=== PATIENT | female | born 1945 | race Caucasian/White ===

== ENCOUNTER 2016-10-10 11:34 | Outpatient (CLI) | payer MEDICARE, OTHER ==
[~2016-10-10] VITALS: Ht 167.6 cm; Wt 65.4 kg
[~2016-10-10 11:34] MED LIST: ACET-62 PO; ALFA600T PO; ASPI-725 PO; CALC-278 PO; CELE-34 PO; CHOL100092 PO; CRAN500C3 PO; ESTR42.53 VAGINALLY; FISH1CAP29 PO; GLUC1CAP25 PO; LOSA100T44 PO; METO25TA41 PO; METO50TA5 PO; MULT-1195 PO; ZOLE5INF IV
[2016-10-10 11:44] VITALS: Ht 167.6 cm; Wt 65.4 kg
[2016-10-10] MEDS ORDERED: ZOLEDRONIC ACID 5MG 100 ML IV ONE (12:15)
[2016-10-10 12:24] VITALS: BP 149/92; PULSE 62; RESP 16; TEMP 97.6; O2SAT 98
== END 2016-10-10 12:45 | disposition home or self-care (01) ==
LOC: INF.THER 11:34
PROVIDERS: ATTEND Internal Medicine
DX: M81.0 Age-related osteoporosis without current pathological fracture (principal)
CPT/HCPCS: J3489

== ENCOUNTER 2016-11-07 08:00 | Observation (INO) | payer MEDICARE, OTHER ==
[~2016-11-07] VITALS: Ht 167.6 cm; Wt 63.0 kg
[~2016-11-07 08:00] MED LIST changes: -ALFA600T PO; -METO25TA41 PO
--- OUTSIDE RECORDS SUMMARY | 2016-11-07 08:09 | XMS REPORT | Continuity of Care Document ---
Author Author [facility] Organization [facility] Address Unknown Phone Unavailable Support Name Relationship Address Phone GRADY CARRILLO MD Caregiver [address] [place] [address] Unavailable JUSTIN HART DO Caregiver [address] [place] [address] Unavailable YO HEADLEY Next Of Kin [address] [place], [place] [phone] Insurance Providers Guarantor FredAndria J Address [address] [place] [address] C Email [email or web address] Payer Medicare Policy Number [id number] Subscriber's Name FredAndria Relationship 18 Self Effective Date 11 Payer [employer] Medicare Supplement Policy Number [id number] Subscriber's Name Alla Reillymark Flores Relationship 18 Self Group Number [id number] Advance Directives Directive Response Recorded Date/Time Advanced Directives Type Living Will DPOA for Healthcare 09/21/16 5:55pm Chief Complaint and Reason for Visit Chief Complaint Palpitations Reason for Visit [id number] Problems Active Problems Medical Problem Onset Date Status Coronary artery sclerosis 03/04/2014 Acute Past Problems Medical Problem Onset Date PVC (premature ventricular contraction) Unknown Medications Current Home Medications Medication Dose Units Route Directions Days Qty Instructions Start Date Acetaminophen 500 Mg Tablet 1,000 Mg Oral Every 4-6 Hours 60 Tablet 09/21/16 Cache 600 Mg Tablet 600 Mg Oral Daily 09/21/16 Aspirin 81 Mg Tab.chew 81 Mg Oral Daily 09/16/13 Calcium Citrate/Vitamin D3 (Calcium Citrate + D Caplet) 1 Tab Tablet 1 Tab Oral Three Times A Day 09/02/08 Celecoxib (Celebrex) 200 Mg Capsule 200 Mg Oral Daily 09/02/08 Cholecalciferol (Vitamin D3) (Vitamin D3) 1,000 Unit Capsule 1 Cap Oral Daily 07/04/16 Cranberry Extract (Cranberry) 500 Mg Capsule 1 Tab Oral Daily 01/12 Estradiol (Estrace Vaginal Cream 0.01%) 21 Applic/42 G Cr 1 Applic Vaginally Twice A Day USUAL APPLICATION: 2-4 GRAMS VAGINALLY 09/21/16 Fish Oil/[place]-3 Fatty Acids (Fish Oil 1,000 Mg Capsule) 1 Cap Capsule 2 Cap Oral Daily 09/02/08 Glucosa Simon 2KCL/Chondroitin Simon (Glucosamine & Chondroitin Cap) 1 Cap Capsule 1 Cap Oral Daily 09/02/08 Losartan Potassium 100 Mg Tablet 100 Mg Oral Daily 09/21/16 Metoprolol Tartrate 25 Mg Tablet 25 Mg Oral Twice A Day 90 Days Metoprolol Tartrate 50 Mg Tablet 50 Mg Oral Twice Daily With Meals 30 Days 60 Tablet Take 1 tablet, by mouth, 2 times a day with meals. 09/21/16 Multivitamin/Iron/Folic Acid (A Thru Z Advanced Formula Tab) 1 Each Tablet 1 Tab Oral Daily 09/21/16 Zoledronic Acid/Mannitol/Water (Reclast 5 Mg/100 Ml Solution) 5 Mg/100 Ml Infus..btl 5 Mg Intraven Yearly 09/17/13 Social History Social History Problem Response Recorded Date/Time Onset Date Status Chewing Tobacco Status No 2013 2:07pm Not Applicable Not Applicable Hx Substance Use No 09/21/2016 6:10pm Not Applicable Not Applicable Hx Alcohol Use Y OCCASIONAL 09/21/2016 6:10pm Not Applicable Not Applicable Has the pt used tobacco in the last 12 months No 07/05/2016 7:34am Not Applicable Not Applicable Query Response Start Date Stop Date Smoking Status Never smoker Hospital Discharge Instructions No hospital discharge instructions. Plan of Care Discharge Date 09/21/16 8:15pm Disposition 01 DISCHARGED HOME, SELF-CARE Condition at Discharge Improved Instructions/Education Provided Palpitations (ED) Prescriptions See Medication Section Referrals JUSTIN HART DO Address: [address] [facility] [address] [place] [address] [phone] Additional Instructions/Education Increase you are metoprolol to 50 mg twice daily and follow up with cardiology. return to the emergency department if you develop any chest pain or shortness of breath. Functional Status No functional status results. Allergies, Adverse Reactions, Alerts Allergen Type Severity Reaction Status Last Updated No Known Drug Allergies Allergy Unknown Active 09/21/16 Immunizations Query Response on File Recorded Date/Time Hx Influenza Vaccination Y 201507/05/16 7:34am Hx Pneumococcal Vaccination Yes 07/05/16 7:34am Hx Influenza Vaccination Y 2016 07/05/16 7:34am Hx Tetanus Diptheria NA 10/23/09 9:45am Influenza Vaccine Hx 04/201609/21/16 6:10pm Vital Signs Acute Vital Signs Vital Response Date/Time Temperature (Fahrenheit) 97.9 deg F (96.8 - 99.1) 09/21/2016 8:15pm Temperature (Calculated Celsius) 36.52059 degrees C (36.0 - 37.3) 09/21/2016 8:15pm Temperature Source Oral 07/05/2016 9:30am Pulse Rate (adult) 68 bpm (60 - 100) 09/21/2016 8:15pm Respiratory Rate 16 breaths/min (10 - 20) 09/21/2016 8:15pm O2 Sat by Pulse Oximetry 100 % (90 - 100) 09/21/2016 8:15pm Oxygen Delivery Method Mask 07/05/2016 8:16am Oxygen Delivery Method Room Air 07/05/2016 9:45am Oxygen Flow Rate 6.00 L/min 07/05/2016 8:16am Blood Pressure 150/67 mm Hg 09/21/2016 8:15pm Blood Pressure Source Automatic Cuff 07/05/2016 9:45am Height (Feet) 5 feet 09/21/2016 5:55pm Height (Inches) 6.00 inches 09/21/2016 5:55pm Weight (Kilograms) 64.600 kg 09/21/2016 5:55pm Body Mass Index (BMI) 22.0 09/21/2016 5:55pm Results Laboratory Results Test Name Result Units Flags Reference Collection Date/Time Result Date/ Time Comments White Blood Count 5.3 T/MM3 4.5-11.0 09/21/2016 6:30pm 09/21/2016 6: 38pm Red Blood Count 4.49 M/MM3 4.00-5.20 09/21/2016 6:30pm 09/21/2016 6: 38pm Hemoglobin 13.3 GM/DL -09/21/2016 6:30pm 09/21/2016 6:38pm Hematocrit 38.4 % 36-46 09/21/2016 6:30pm 09/21/2016 6:38pm Mean Corpuscular Volume 85.5 UM3 80-100 09/21/2016 6:30pm 09/21/2016 6: 38pm Mean Corpuscular Hemoglobin 29.6 UUG 26-34 09/21/2016 6:30pm 2016 6:38pm Mean Corpuscular Hemoglobin Concent 34.6 GM/DL 31-37 09/21/2016 6:30pm 09/21/2016 6:38pm RDW Standard Deviation 40.4 FL 36.9-50.2 09/21/2016 6:30pm 09/21/2016 6 :38pm Platelet Count 190 T/MM3 130-400 09/21/2016 6:30pm 09/21/2016 6:38pm Mean Platelet Volume 9.4 UM3 9.4-12.4 09/21/2016 6:30pm 09/21/2016 6: 38pm Neutrophils (%) (Auto) 51.1 % 33-66 09/21/2016 6:30pm 09/21/2016 6: 38pm Lymphocytes (%) (Auto) 36.4 % 23-45 09/21/2016 6:30pm 09/21/2016 6: 38pm Monocytes (%) (Auto) 8.5 % 0-9.0 09/21/2016 6:30pm 09/21/2016 6:38pm Eosinophils (%) (Auto) 2.3 % 0-4 09/21/2016 6:30pm 09/21/2016 6:38pm Basophils (%) (Auto) 0.9 % 0-2 09/21/2016 6:30pm 09/21/2016 6:38pm Immature Granulocyte % (Auto) 0.8 % H 0.0-0.5 09/21/2016 6:30pm 2016 6:38pm Absolute Neutrophils (auto) 2.7 T/MM3 1.8-7.7 09/21/2016 6:30pm 2016 6:38pm Absolute Lymphocytes (auto) 1.9 T/MM3 1-4.8 09/21/2016 6:30pm 2016 6:38pm Absolute Monocytes (auto) 0.5 T/MM3 0-0.8 09/21/2016 6:30pm 09/21/2016 6:38pm Absolute Eosinophils (auto) 0.1 T/MM3 0-0.5 09/21/2016 6:30pm 2016 6:38pm Absolute Basophils (auto) 0.1 T/MM3 0-0.2 09/21/2016 6:30pm 09/21/2016 6:38pm Absolute Immature Granulocyte (auto 0.04 T/MM3 H 0.00-0.03 09/21/2016 6: 30pm 09/21/2016 6:38pm D-Dimer < 150 NG/ML 0-230 09/21/2016 6:30pm 09/21/2016 6:48pm <230 NG/ ML D-DU=PRESUMPTIVE NEGATIVE FOR PE OR DVT >230 NG/ML D-DU=ADDITIONAL EVAL FOR PE OR DVT RECOMMENDED Icterus Index < 2 0-7 09/21/2016 6:30pm 09/21/2016 6:54pm Chemistry Specimen Hemolysis < 15 0-25 09/21/2016 6:30pm 09/21/2016 6 :54pm 0-25: Specimen Exhibited No Hemolysis. Turbidity < 20 0-20 09/21/2016 6:30pm 09/21/2016 6:54pm Sodium Level 135 MEQ/L 134-144 09/21/2016 6:30pm 09/21/2016 6:54pm Potassium Level 4.2 MEQ/L 3.6-5 09/21/2016 6:30pm 09/21/2016 6:54pm Chloride Level 100 MEQ/L 98-107 09/21/2016 6:30pm 09/21/2016 6:54pm Carbon Dioxide Level 27 MEQ/L 09/21/2016 6:30pm 09/21/2016 6: 54pm Anion Gap 8 MEQ/L 509/21/2016 6:30pm 09/21/2016 6:54pm Blood Urea Nitrogen 15.0 MG/DL 02-1209/21/2016 6:30pm 09/21/2016 6: 54pm Creatinine 0.8 MG/DL 0.7-1.2 09/21/2016 6:30pm 09/21/2016 6:54pm BUN/Creatinine Ratio 19 RATIO 01-2209/21/2016 6:30pm 09/21/2016 6:54pm Glomerular Filtration Rate Calc 71 09/21/2016 6:30pm 09/21/2016 6: 54pm Glucose Level 91 MG/DL 65-110 09/21/2016 6:30pm 09/21/2016 6:54pm Calculated Osmolality 261 MOSM/KG 261-280 09/21/2016 6:30pm 09/21/2016 6:54pm Calcium Level 9.2 MG/DL 8.4-10.2 09/21/2016 6:30pm 09/21/2016 6:54pm Total Bilirubin 0.60 MG/DL 0.20-1.30 09/21/2016 6:30pm 09/21/2016 6: 54pm Alkaline Phosphatase 145 U/L H 38-126 09/21/2016 6:30pm 09/21/2016 6: 54pm Total Protein 6.9 G/DL 6.3-8.2 09/21/2016 6:30pm 09/21/2016 6:54pm Albumin 4.3 G/DL 3.5-5.0 09/21/2016 6:30pm 09/21/2016 6:54pm Globulin 2.6 G/DL 2.4-3.6 09/21/2016 6:30pm 09/21/2016 6:54pm Albumin/Globulin Ratio 1.7 RATIO 1.1-2.2 09/21/2016 6:30pm 09/21/2016 6 :54pm Aspartate Amino Transf (AST/SGOT) 20 U/L 14-36 09/21/2016 6:30pm 2016 6:54pm Alanine Aminotransferase (ALT/SGPT) 38 U/L 9-52 09/21/2016 6:30pm 09/21 6:54pm Troponin I < 0.012 ng/ml 0-0.12 09/21/2016 6:30pm 09/21/2016 7:05pm Troponin values with a difference of 55% increase from orginal troponin value represent a true biological DELTA value. (%increase Calc=Orginal Troponin value, divided by subsequent Troponin value, multiplied by 100) Procedures Procedure Status Date Provider(s) Colonoscopy and biopsy Completed 07/05/16 JUSTIN HART DO Tissue exam by pathologist Completed 07/05/16"INJECTION, MIDAZOLAM HYDROCHLORIDE, PER 1 MG" Completed 07/05/16"INJECTION, MIDAZOLAM HYDROCHLORIDE, PER 1 MG" Completed 07/05/16"INJECTION, FENTANYL CITRATE, 0.1 MG" Completed 07/05/16"RINGERS LACTATE INFUSION, UP TO 1000 CC" Completed 07/05/16 Encounters Encounter Location Arrival/Admit Date Discharge/Depart Date Attending Provider Departed Emergency Room [facility] 09/21/16 5:53pm 09/21/16 8: 15pm GRADY CARRILLO MD Departed Surgical Day Care [facility] 07/05/16 6:40am 07/05/16 9: 45am JUSTIN HART DO Recent Diagnosis
--- OUTSIDE RECORDS SUMMARY | 2016-11-07 08:09 | XMS REPORT | Continuity of Care Document ---
Author Author [facility] Organization [facility] Address Unknown Phone Unavailable Support Name Relationship Address Phone JUSTIN HART DO Caregiver [address] [place] [address] Unavailable JUSTIN HART DO Caregiver [address] [place] [address] Unavailable BAIRON MCCOY MD Caregiver [address] [place] [address] Unavailable YO HEADLEY Next Of Kin [address] [place] [id number] Insurance Providers Guarantor DarlinemeyAndria J Address [address] [place] [id number] Email [email or web address] Payer Cigna Medicare Supplement Policy Number [id number] Subscriber's Name FredAndria J Relationship 18 Self Group Number [id number] Payer Medicare Policy Number [id number] Subscriber's Name Andria Reilly Relationship 18 Self Problems Active Problems Medical Problem Onset Date Status Coronary artery sclerosis 03/04/2014 Acute HTN (hypertension) Unknown Chronic Premature atrial contractions Unknown Chronic Past Problems Medical Problem Onset Date PVC (premature ventricular contraction) Unknown Medications Current Home Medications Medication Dose Units Route Directions Days Qty Instructions Start Date Acetaminophen 500 Mg Tablet 1,000 Mg Oral Every 4-6 Hours 60 Tablet 09/21/16 Aspirin 81 Mg Tab.chew 81 Mg [...] USUAL APPLICATION: 2-4 GRAMS VAGINALLY 09/21/16 Fish Oil/[place]-3 Fatty Acids (Fish Oil 1,000 Mg Capsule) 1 Cap Capsule 2 Cap Oral Daily 09/02/08 Glucosa Simon 2KCL/Chondroitin Simon (Glucosamine & Chondroitin Cap) 1 Cap Capsule 1 Cap Oral Daily 09/02/08 Losartan Potassium 100 Mg Tablet 100 Mg Oral Daily 09/21/16 Metoprolol Tartrate 50 Mg Tablet 50 Mg [...] tobacco in the last 12 months No 10/10/2016 12:20pm Not Applicable Not Applicable Query Response Start Date Stop Date Smoking Status Never smoker Hospital Discharge Instructions No hospital discharge instructions. Plan of Care Discharge Date 10/10/16 12:45pm Prescriptions See Medication Section Functional Status No functional status results. Allergies, Adverse Reactions, Alerts Allergen Type Severity Reaction Status Last Updated No Known Drug Allergies Allergy Unknown Active 09/21/16 Immunizations Query Response on File Recorded Date/Time Hx Influenza Vaccination Y 201510/10/16 12:20pm Hx Pneumococcal Vaccination Yes 10/10/16 12:20pm Hx Influenza Vaccination Y 201510/10/16 12:20pm Hx Tetanus Diptheria NA 10/23/09 9:45am Influenza Vaccine Hx 04/201609/21/16 6:10pm Vital Signs Acute Vital Signs Vital Response Date/Time Temperature (Fahrenheit) 97.6 deg F (96.8 - 99.1) 10/10/2016 12:24pm Temperature (Calculated Celsius) 36.83097 degrees C (36.0 - 37.3) 10/10/2016 12:24pm Pulse Rate (adult) 62 bpm (60 - 100) 10/10/2016 12:24pm Respiratory Rate 16 breaths/min (10 - 20) 10/10/2016 12:24pm O2 Sat by Pulse Oximetry 98 % (90 - 100) 10/10/2016 12:24pm Oxygen Delivery Method Room Air 10/10/2016 12:24pm Blood Pressure 149/92 mm Hg 10/10/2016 12:24pm Blood Pressure Source Automatic Cuff 10/10/2016 12:24pm Height (Feet) 5 feet 10/10/2016 11:44am Height (Inches) 6.00 inches 10/10/2016 11:44am Weight (Kilograms) 65.400 kg 10/10/2016 11:44am Body Mass Index (BMI) 23.3 10/10/2016 11:44am Results Laboratory Results Test Name Result Units Flags Reference Collection Date/Time Result Date/ Time Comments White Blood Count 5.3 T/MM3 4.5-11.0 09/21/2016 6:30pm 09/21/2016 6: 38pm Red Blood Count 4.49 M/MM3 4.00-5.20 09/21/2016 6:30pm 09/21/2016 6: 38pm Hemoglobin 13.3 GM/DL 12-16 09/21/2016 6:30pm 09/21/2016 6:38pm Hematocrit 38.4 % 36-46 [...] 09/21/2016 6:54pm Carbon Dioxide Level 27 MEQ/L -09/21/2016 6:30pm 09/21/2016 6: 54pm Anion Gap 8 MEQ/L 5-09/21/2016 6:30pm 09/21/2016 6:54pm Blood Urea Nitrogen 15.0 MG/DL 7-09/21/2016 6:30pm 09/21/2016 6: 54pm Creatinine 0.8 MG/DL 0.7-1.2 09/21/2016 6:30pm 09/21/2016 6:54pm BUN/Creatinine Ratio 19 RATIO 6-09/21/2016 6:30pm 09/21/2016 6:54pm Glomerular Filtration Rate Calc [...] by subsequent Troponin value, multiplied by 100) Thyroid Stimulating Hormone (TSH) 2.62 uIU/mL 0.35-4.94 09/21/2016 6: 30pm 09/22/2016 2:39pm TSH performed at [facility] Reference [facility], [address] [place] [address] Factory Assembler Bel Healy DO Procedures Procedure Status Date Provider(s) Chest x-ray 2vw frontal&latl Completed 09/21/16 Comprehen metabolic panel Completed 09/21/16 Assay of troponin quant Completed 09/21/16 Complete cbc w/auto diff wbc Completed 09/21/16 Fibrin degradation quant Completed 09/21/16 Electrocardiogram tracing Completed 09/21/16 Hydrate iv infusion add-on Completed 09/21/16 Ther/proph/diag inj iv push Completed 09/21/16 Emergency dept visit Completed 09/21/16 [id number]"INFUSION, NORMAL SALINE SOLUTION , 1000 CC" Completed 09/21/16 Encounters Encounter Location Arrival/Admit Date Discharge/Depart Date Attending Provider Departed Clinic [facility] 10/10/16 11:34am 10/10/16 12:45pm JUSTIN HART DO Departed Emergency Room [facility] 09/21/16 5:53pm 09/21/16 8: 15pm GRADY CARRILLO MD
--- NOTE | 2016-11-07 08:15 | NUR ---
ARRIVAL PATIENT ARRIVED ON UNIT AT THIS TIME FROM HOME. ORIENTED TO UNIT. VITAL SIGNS STABLE. PLACED ON TELEMETRY. WILL CONTINUE TO MONITOR.
[2016-11-07 08:17] VITALS: BP 134/76; PULSE 60; RESP 16; TEMP 96.4; O2SAT 99
[2016-11-07 08:25] VITALS: Ht 167.6 cm; Wt 63.0 kg
[2016-11-07] MEDS ORDERED: magnes PO (08:47)
[2016-11-07 08:57] LABS: HCT - HEMATOCRIT 38.6 % (36-46); HGB - HEMOGLOBIN 13.1 GM/DL (12-16); MEAN CORPUSCULAR HGB 29.8 UUG (26-34); MEAN CORPUSCULAR HGB CONC(MCHC 33.9 GM/DL (31-37); MEAN CORPUSCULAR VOLUME 87.9 UM3 (80-100); MEAN PLATELET VOLUME 9.8 UM3 (9.4-12.4); RED BLOOD COUNT 4.39 M/MM3 (4.00-5.20); WBC - WHITE BLOOD COUNT 3.2 T/MM3 (4.5-11.0)
[2016-11-07 09:06] LABS: ALBUMIN/GLOBULIN RATIO 1.4 RATIO (1.1-2.2); ALKALINE PHOSPHATASE 123 U/L (38-126); ALT (SGPT) 49 U/L (9-52); ANION GAP 10 MEQ/L (5-15); AST (SGOT) 22 U/L (14-36); BUN/CREATININE RATIO 18 RATIO (6-26); CALCIUM 8.8 MG/DL (8.4-10.2); CHLORIDE 101 MEQ/L (98-107); CO2 - CARBON DIOXIDE 27 MEQ/L (22-30); CREATININE 0.8 MG/DL (0.7-1.2); GLOMERULAR FILTRATION RATE 71; GLUCOSE 98 MG/DL (65-110); MAGNESIUM 2.1 MG/DL (1.6-2.3); POTASSIUM 4.1 MEQ/L (3.6-5); SODIUM 138 MEQ/L (134-144); TOTAL PROTEIN 6.8 G/DL (6.3-8.2)
[2016-11-07 09:12] LABS: EOSINOPHILS # (MANUAL) 0.2 T/MM3 (0-0.5); LYMPHOCYTES # (MANUAL) 1.3 T/MM3 (1-4.8); MONOCYTES # (MANUAL) 0.4 T/MM3 (0-0.8); NEUTROPHILS #(MANUAL)-ABSOLUTE 1.2 T/MM3 (1.8-7.7); TOTAL CELLS COUNTED 100 %
[2016-11-07] MEDS ORDERED: ACETAMINOPHEN 500 MG TABLET PO PRN (09:30)
[2016-11-07] MEDS: FLECAINIDE 50 MG TABLET PO SCH ×2 (09:33→21:05)
[2016-11-07 09:35] LABS: THYROID STIM HORMONE-TSH 1.82 MIU/L (0.47-4.68)
[2016-11-07] MEDS ORDERED: ESTRADIOL 0.01% VAGINALLY SCH (10:02)
[2016-11-07] MEDS ORDERED: ESTRADIOL 0.01% VAGINALLY PRN (10:15)
[2016-11-07] MEDS ORDERED: CELECOXIB 200 MG CAPSULE PO ONE (10:15)
--- NOTE | 2016-11-07 13:43 | HPPDOC ---
ELROY APPIAH CIGAR TOBACCO REHANDLER 11/07/16 1329: HPI - Adult Date DATE: 11/07/16 TIME: 13:26 General Date of Admission Date of Admission: Nov 07, 2016 at 08:05 History of Present Illness Andria is a 71 y/o female who is admitted for initiation of Flecainide. Patient has had palpitations and chest pain that is associated with her SVT. Past Medical History Past Medical History PMH Comments Breast lump -- benign HTN PSVT Surgical History Surgical History Comments foramonotomy tonsillectomy carpal tunnel richie cervical diskectomy C5-7 cervical fusion C4-7 Current Medications Home Meds Active Scripts Flecainide Acetate (Flecainide Acetate) 50 Mg Tablet, 50 MG PO Q12HR for 30 Days , #60 TAB 11 Refills Prov:BIJALELROY S CIGAR TOBACCO REHANDLER 11/08/16 Metoprolol Tartrate (Metoprolol Tartrate) 50 Mg Tablet, 50 MG PO BIDWM for 30 Days, #60 TAB Take 1 tablet, by mouth, 2 times a day with meals. Prov:GRADY CARRILLO MD 09/21/16 Reported Medications [magnes] No Conflict Check, 250 MG PO DAILY 11/07/16 Acetaminophen (Acetaminophen) 500 Mg Tablet, 1000 MG PO Q4-6H, #60 TAB 1 Refill 09/21/16 Estradiol (Estrace Vaginal Cream 0.01%) 21 Applic/42 G Cr, 1 APPLIC VAGINALLY BID, G USUAL APPLICATION: 2-4 GRAMS VAGINALLY 09/21/16 Multivitamin/Iron/Folic Acid (A Thru Z Advanced Formula Tab) 1 Each Tablet, 1 TAB PO DAILY 09/21/16 Losartan Potassium (Losartan Potassium) 100 Mg Tablet, 100 MG PO DAILY 09/21/16 Cranberry Extract (Cranberry) 500 Mg Capsule, 1 TAB PO DAILY 07/04/16 Cholecalciferol (Vitamin D3) (Vitamin D3) 1,000 Unit Capsule, 1 CAP PO DAILY 07/04/16 Zoledronic Acid/Mannitol/Water (Reclast 5 Mg/100 Ml Solution) 5 Mg/100 Ml Infus..btl, 5 MG IV YEARLY 09/17/13 Aspirin (Aspirin) 81 Mg Tab.chew, 81 MG PO DAILY, TAB 09/16/13 Celecoxib (Celebrex) 200 Mg Capsule, 200 MG PO DAILY 09/02/08 Calcium Citrate/Vitamin D3 (Calcium Citrate + D Caplet) 1 Tab Tablet, 1 TAB PO TID 09/02/08 Glucosa Simon 2KCL/Chondroitin Simon (Glucosamine & Chondroitin Cap) 1 Cap Capsule, 1 CAP PO DAILY 09/02/08 Allergies: Coded Allergies: No Known Drug Allergies (Verified Allergy, Unknown, 11/07/16) Family History FOUND: cancer (father had liver & lung cancer), diabetes (father), hypertension , other (mom had alzheimers) Vaccines 04/2016 unknown date unknown Social History Smoking Status: Current every day smoker (0.5 ppd) Substance Use Type: does not use Alcohol Intake: occasionally Advance Directives: Yes DPOA for Healthcare Only Review of Systems Constitutional: REPORTS: fatigue, DENIES: chills, fever, weight gain, weight loss Eyes General: DENIES: photophobia ENMT Hearing: DENIES: hearing loss Sinuses: NOT FOUND: rhinorrhea Mouth/Throat: DENIES: sore throat Cardiovascular chest pain, DENIES: dyspnea on exertion Rhythm/Rate: palpitations Pulmonary Respiratory: DENIES: dyspnea, pleuritic chest pain GI Upper Abdomen: DENIES: heartburn/indigestion, nausea, vomiting Lower Abdomen: DENIES: constipation, diarrhea Musculoskeletal General: DENIES: weakness Integumentary Skin: DENIES: rash Neurological General: DENIES: syncope Endocrine DENIES: heat/cold intolerance Physical Exam General General Nourishment: well nourished, well developed Vital Signs Vital Signs Date Time Temp Pulse Resp B/P Pulse Ox O2 Delivery O2 Flow Rate FiO2 11/07/16 08:17 96.4 60 16 134/76 99 Room Air Height (Feet): 5 Height (Inches): 6.00 Telemetry Rhythm: Sinus Rhythm Eyes Brief: FOUND: EOMI ENMT Brief: FOUND: mucosa moist Neck Brief: NOT FOUND: JVD, carotid bruits Respiratory Brief: FOUND: clear all reyna, equal bilaterally, NOT FOUND: rales , wheezes Cardiovascular (brief) Cardiac Brief: FOUND: regular rate, regular rhythm, NOT FOUND: murmur Capillary Refill: <2 sec Abdomen (brief) Abdominal Brief: FOUND: BS normo active x4, soft, NOT FOUND: tender Integumentary (brief) Integumentary Brief: FOUND: dry, pink, warm, NOT FOUND: rash Neurologic RN Documented GCS Eye Opening: Verbal: Motor: Total: Psychiatric (brief) FOUND: alert, normal affect, oriented Laboratory Laboratory Tests Test 11/07/16 08:30 White Blood Count 3.2T/MM3 Red Blood Count 4.39M/MM3 Hemoglobin 13.1GM/DL Hematocrit 38.6% Mean Corpuscular Volume 87.9UM3 Mean Corpuscular Hemoglobin 29.8UUG Mean Corpuscular Hemoglobin Concent 33.9GM/DL RDW Standard Deviation 42.2FL Platelet Count 162T/MM3 Mean Platelet Volume 9.8UM3 Neutrophils % (Manual) 39.0% Band Neutrophils % 1.0% Lymphocytes % (Manual) 42.0% Monocytes % (Manual) 11.0% Eosinophils % (Manual) 6.0% Basophils % (Manual) 1.0% Absolute Neutrophils (Manual) 1.2T/MM3 Band Neutrophils # 0.0T/MM3 Lymphocytes # (Manual) 1.3T/MM3 Monocytes # (Manual) 0.4T/MM3 Eosinophils # (Manual) 0.2T/MM3 Basophils # (Manual) 0.0T/MM3 Red Cell Morphology Comment Normal Turbidity < 20 Sodium Level 138MEQ/L Potassium Level 4.1MEQ/L Chloride Level 101MEQ/L Carbon Dioxide Level 27MEQ/L Anion Gap 10MEQ/L Blood Urea Nitrogen 14.0MG/DL Creatinine 0.8MG/DL Glomerular Filtration Rate Calc 71 BUN/Creatinine Ratio 18RATIO Glucose Level 98MG/DL Calculated Osmolality 267MOSM/KG Calcium Level 8.8MG/DL Magnesium Level 2.1MG/DL Total Bilirubin 0.70MG/DL Icterus Index < 2 Aspartate Amino Transf (AST/SGOT) 22U/L Alanine Aminotransferase (ALT/SGPT) 49U/L Alkaline Phosphatase 123U/L Total Protein 6.8G/DL Albumin 4.0G/DL Globulin 2.8G/DL Albumin/Globulin Ratio 1.4RATIO Thyroid Stimulating Hormone (TSH) 1.82MIU/L Chemistry Specimen Hemolysis < 15 Laboratory Tests Test 11/07/16 08:30 White Blood Count 3.2T/MM3 Red Blood Count 4.39M/MM3 Hemoglobin 13.1GM/DL Hematocrit 38.6% Mean Corpuscular Volume 87.9UM3 Mean Corpuscular Hemoglobin 29.8UUG Mean Corpuscular Hemoglobin Concent 33.9GM/DL RDW Standard Deviation 42.2FL Platelet Count 162T/MM3 Mean Platelet Volume 9.8UM3 Neutrophils % (Manual) 39.0% Band Neutrophils % 1.0% Lymphocytes % (Manual) 42.0% Monocytes % (Manual) 11.0% Eosinophils % (Manual) 6.0% Basophils % (Manual) 1.0% Absolute Neutrophils (Manual) 1.2T/MM3 Band Neutrophils # 0.0T/MM3 Lymphocytes # (Manual) 1.3T/MM3 Monocytes # (Manual) 0.4T/MM3 Eosinophils # (Manual) 0.2T/MM3 Basophils # (Manual) 0.0T/MM3 Red Cell Morphology Comment Normal Turbidity < 20 Sodium Level 138MEQ/L Potassium Level 4.1MEQ/L Chloride Level 101MEQ/L Carbon Dioxide Level 27MEQ/L Anion Gap 10MEQ/L Blood Urea Nitrogen 14.0MG/DL Creatinine 0.8MG/DL Glomerular Filtration Rate Calc 71 BUN/Creatinine Ratio 18RATIO Glucose Level 98MG/DL Calculated Osmolality 267MOSM/KG Calcium Level 8.8MG/DL Magnesium Level 2.1MG/DL Total Bilirubin 0.70MG/DL Icterus Index < 2 Aspartate Amino Transf (AST/SGOT) 22U/L Alanine Aminotransferase (ALT/SGPT) 49U/L Alkaline Phosphatase 123U/L Total Protein 6.8G/DL Albumin 4.0G/DL Globulin 2.8G/DL Albumin/Globulin Ratio 1.4RATIO Thyroid Stimulating Hormone (TSH) 1.82MIU/L Chemistry Specimen Hemolysis < 15 EKG SR with QT/QTc 392/397 Assessment & Plan Problems: (1) Precordial pain Assessment & Plan: Feels this is related to her SVT. Is to have MPI in the near future per office note (2) Palpitations Assessment & Plan: started on Flecainide. (3) Nonrheumatic aortic valve insufficiency (4) Essential (primary) hypertension (5) Atrial septal defect (6) Supraventricular tachycardia Assessment & Plan: started on Flecainide. (7) HTN (hypertension) Status: Chronic Qualifiers: Hypertension type: essential hypertension Qualified Codes: I10 - Essential (primary) hypertension Code Status Full Code Hospital Course Summary Disclaimer The hospital course summary below is not to be considered part of the above Progress Note. Hospital Course Summary 11/07/16 Admitted for AAT -- started on Flecainide 50mg po BID. Initial QT/QTc 392/397 DEVYN CASAS MD 11/10/16 4682: Past Medical History Current Medications Home Meds Active Scripts Flecainide Acetate (Flecainide Acetate) 50 Mg Tablet, 50 MG PO Q12HR for 30 Days , #60 TAB 11 Refills Prov:ELROY APPIAH APRN 11/08/16 Metoprolol Tartrate (Metoprolol Tartrate) 50 Mg Tablet, 50 MG PO BIDWM for 30 Days, #60 TAB Take 1 tablet, by mouth, 2 times a day with meals. Prov:GRADY CARRILLO MD 09/21/16 Reported Medications [magnes] No Conflict Check, 250 MG PO DAILY 11/07/16 Acetaminophen (Acetaminophen) 500 Mg Tablet, 1000 MG PO Q4-6H, #60 TAB 1 Refill 09/21/16 Estradiol (Estrace Vaginal Cream 0.01%) 21 Applic/42 G Cr, 1 APPLIC VAGINALLY BID, G USUAL APPLICATION: 2-4 GRAMS VAGINALLY 09/21/16 Multivitamin/Iron/Folic Acid (A Thru Z Advanced Formula Tab) 1 Each Tablet, 1 TAB PO DAILY 09/21/16 Losartan Potassium (Losartan Potassium) 100 Mg Tablet, 100 MG PO DAILY 09/21/16 Cranberry Extract (Cranberry) 500 Mg Capsule, 1 TAB PO DAILY 07/04/16 Cholecalciferol (Vitamin D3) (Vitamin D3) 1,000 Unit Capsule, 1 CAP PO DAILY 07/04/16 Zoledronic Acid/Mannitol/Water (Reclast 5 Mg/100 Ml Solution) 5 Mg/100 Ml Infus..btl, 5 MG IV YEARLY 09/17/13 Aspirin (Aspirin) 81 Mg Tab.chew, 81 MG PO DAILY, TAB 09/16/13 Celecoxib (Celebrex) 200 Mg Capsule, 200 MG PO DAILY 09/02/08 Calcium Citrate/Vitamin D3 (Calcium Citrate + D Caplet) 1 Tab Tablet, 1 TAB PO TID 09/02/08 Glucosa Simon 2KCL/Chondroitin Simon (Glucosamine & Chondroitin Cap) 1 Cap Capsule, 1 CAP PO DAILY 09/02/08 Allergies: Coded Allergies: No Known Drug Allergies (Verified Allergy, Unknown, 11/07/16) Assessment & Plan Hospital Course Summary Hospital Course Summary After examining the patient I agree with the above assessment. I am involved in the formulation of the patient's plan of care. ELROY APPIAH CIGAR TOBACCO REHANDLER Nov 07, 2016 13:29 DEVYN CASAS MD Nov 10, 2016 15:52
[2016-11-07 15:08] VITALS: BP 134/71; PULSE 62; RESP 16; TEMP 97.7; O2SAT 97
--- NOTE | 2016-11-07 18:56 | NUR ---
Shift Summary Patient alert and oriented x3. VSS. On RA. Denies pain, n/v/d. Up ad irddhi in room. Patient also walked in halls today. Telemetry running sinus rhythm. Adequate output and intake today. Patient had little needs from staff. IV locked right forearm, IV placed by doctor of nursing practice with supervision by this RN.
--- NOTE | 2016-11-07 21:00 | NUR ---
activity up and around in room, denies dizziness as up. Denies chest discomfort
[2016-11-08 00:32] VITALS: BP 121/74; PULSE 61; RESP 16; TEMP 96.6; O2SAT 99
--- NOTE | 2016-11-08 05:20 | NUR ---
REST SLEEPS MUCH OF NIGHT, RESP. EASY
--- NOTE | 2016-11-08 05:20 | NUR ---
TELE INDICATES OCCAS. RUNS OF TRIGEMINAL PVC. PT STATES SHE CAN FEEL THE ECTOPIC BEATS, DENIES CHEST PAIN OR PRESSURE
[2016-11-08 05:21] LABS: ANION GAP 9 MEQ/L (5-15); BUN/CREATININE RATIO 21 RATIO (6-26); CHLORIDE 105 MEQ/L (98-107); CO2 - CARBON DIOXIDE 28 MEQ/L (22-30); CREATININE 0.7 MG/DL (0.7-1.2); GLOMERULAR FILTRATION RATE 83; GLUCOSE 96 MG/DL (65-110); MAGNESIUM 2.3 MG/DL (1.6-2.3); POTASSIUM 4.8 MEQ/L (3.6-5); SODIUM 142 MEQ/L (134-144)
[2016-11-08 07:35] VITALS: BP 134/62; PULSE 64; RESP 16; TEMP 95.4; O2SAT 99
[2016-11-08 07:46] VITALS: PULSE 64
[2016-11-08] MEDS ORDERED: FLEC50TA2 PO (07:57)
[2016-11-08] MEDS: FLECAINIDE 50 MG TABLET PO SCH (08:53)
[2016-11-08] MEDS ORDERED: ASPIRIN 81 MG CHEWABLE TABLET PO SCH (09:00)
[2016-11-08] MEDS ORDERED: CELECOXIB 200 MG CAPSULE PO SCH (09:00)
[2016-11-08] MEDS ORDERED: LOSARTAN 100 MG TABLET PO SCH (09:00)
--- NOTE | 2016-11-08 09:08 | NUR ---
Discharge Patient discharged to home at this time. Discharge instructions discussed with patient and sent home. S/s to look for and medication side effects discussed. Instructions sent home with patient along with belongings.
--- NOTE | 2016-11-08 09:29 | DSPDOC ---
ELROY APPIAH MANAGER FREELANCE 11/08/16 0918: General Date Date DATE: 11/08/16 TIME: 09:11 Attending Physician Mendez Casas MD Admitting Physician Mendez Casas MD Consulting Physician Admitting Diagnosis R00 I47.1 Discharge Diagnosis R00 I47.1 Procedures NA Laboratory Laboratory Tests Test 11/07/16 08:30 11/08/16 04:42 White Blood Count 3.2T/MM3 (4.5-11.0) Red Blood Count 4.39M/MM3 (4.00-5.20) Hemoglobin 13.1GM/DL (12-16) Hematocrit 38.6% (36-46) Mean Corpuscular Volume 87.9UM3 (80-100) Mean Corpuscular Hemoglobin 29.8UUG (26-34) Mean Corpuscular Hemoglobin Concent 33.9GM/DL (31-37) RDW Standard Deviation 42.2FL (36.9-50.2) Platelet Count 162T/MM3 (130-400) Mean Platelet Volume 9.8UM3 (9.4-12.4) Neutrophils % (Manual) 39.0% (33-66) Band Neutrophils % 1.0% (0-6) Lymphocytes % (Manual) 42.0% (23-45) Monocytes % (Manual) 11.0% (0-9.0) Eosinophils % (Manual) 6.0% (0-4) Basophils % (Manual) 1.0% (0-2) Absolute Neutrophils (Manual) 1.2T/MM3 (1.8-7.7) Band Neutrophils # 0.0T/MM3 Lymphocytes # (Manual) 1.3T/MM3 (1-4.8) Monocytes # (Manual) 0.4T/MM3 (0-0.8) Eosinophils # (Manual) 0.2T/MM3 (0-0.5) Basophils # (Manual) 0.0T/MM3 (0-0.2) Red Cell Morphology Comment Normal Turbidity < 20 (0-20) < 20 (0-20) Sodium Level 138MEQ/L (134-144) 142MEQ/L (134-144) Potassium Level 4.1MEQ/L (3.6-5) 4.8MEQ/L (3.6-5) Chloride Level 101MEQ/L (98-107) 105MEQ/L (98-107) Carbon Dioxide Level 27MEQ/L (22-30) 28MEQ/L (22-30) Anion Gap 10MEQ/L (5-15) 9MEQ/L (5-15) Blood Urea Nitrogen 14.0MG/DL (7-17) 15.0MG/DL (7-17) Creatinine 0.8MG/DL (0.7-1.2) 0.7MG/DL (0.7-1.2) Glomerular Filtration Rate Calc 71 83 BUN/Creatinine Ratio 18RATIO (6-26) 21RATIO (6-26) Glucose Level 98MG/DL (65-110) 96MG/DL (65-110) Calculated Osmolality 267MOSM/KG (261-280) 274MOSM/KG (261-280) Calcium Level 8.8MG/DL (8.4-10.2) 9.0MG/DL (8.4-10.2) Magnesium Level 2.1MG/DL (1.6-2.3) 2.3MG/DL (1.6-2.3) Total Bilirubin 0.70MG/DL (0.20-1.30) Icterus Index < 2 (0-7) < 2 (0-7) Aspartate Amino Transf (AST/SGOT) 22U/L (14-36) Alanine Aminotransferase (ALT/SGPT) 49U/L (9-52) Alkaline Phosphatase 123U/L (38-126) Total Protein 6.8G/DL (6.3-8.2) Albumin 4.0G/DL (3.5-5.0) Globulin 2.8G/DL (2.4-3.6) Albumin/Globulin Ratio 1.4RATIO (1.1-2.2) Thyroid Stimulating Hormone (TSH) 1.82MIU/L (0.47-4.68) Free Thyroxine 1.17NG/DL (0.78-2.19) Chemistry Specimen Hemolysis < 15 (0-25) < 15 (0-25) History of Present Illness Andria is a 71 y/o female who is admitted for initiation of Flecainide. Patient has had palpitations and chest pain that is associated with her SVT. Objective Vital Signs Vital signs Vital Signs 11/08/16 11/08/16 11/08/16 11/08/16 00:32 07:35 07:46 08:51 Temp 96.6 95.4 Pulse 61 64 64 64 Resp 16 16 B/P 121/74 134/62 134/62 Pulse Ox 99 99 O2 Delivery Room Air Room Air Telemetry Rhythm: Sinus Rhythm Telemetry Ectopy: PVC Height (Feet): 5 Height (Inches): 6.00 Weight (Kilograms): 63.000 General Alert, Orientated x 3, Well Nourished Eyes (Brief) EOMI ENMT (Brief) mucosa moist Respiratory (Brief) clear all reyna, equal bilaterally, NOT FOUND: rales, wheezes Cardiovascular (Brief) regular rate, regular rhythm, NOT FOUND: murmur, pedal edema Integumentary (Brief) dry, pink, warm Laboratory Laboratory Laboratory Tests Test 11/07/16 08:30 11/08/16 04:42 White Blood Count 3.2T/MM3 Red Blood Count 4.39M/MM3 Hemoglobin 13.1GM/DL Hematocrit 38.6% Mean Corpuscular Volume 87.9UM3 Mean Corpuscular Hemoglobin 29.8UUG Mean Corpuscular Hemoglobin Concent 33.9GM/DL RDW Standard Deviation 42.2FL Platelet Count 162T/MM3 Mean Platelet Volume 9.8UM3 Neutrophils % (Manual) 39.0% Band Neutrophils % 1.0% Lymphocytes % (Manual) 42.0% Monocytes % (Manual) 11.0% Eosinophils % (Manual) 6.0% Basophils % (Manual) 1.0% Absolute Neutrophils (Manual) 1.2T/MM3 Band Neutrophils # 0.0T/MM3 Lymphocytes # (Manual) 1.3T/MM3 Monocytes # (Manual) 0.4T/MM3 Eosinophils # (Manual) 0.2T/MM3 Basophils # (Manual) 0.0T/MM3 Red Cell Morphology Comment Normal Turbidity < 20 < 20 Sodium Level 138MEQ/L 142MEQ/L Potassium Level 4.1MEQ/L 4.8MEQ/L Chloride Level 101MEQ/L 105MEQ/L Carbon Dioxide Level 27MEQ/L 28MEQ/L Anion Gap 10MEQ/L 9MEQ/L Blood Urea Nitrogen 14.0MG/DL 15.0MG/DL Creatinine 0.8MG/DL 0.7MG/DL Glomerular Filtration Rate Calc 71 83 BUN/Creatinine Ratio 18RATIO 21RATIO Glucose Level 98MG/DL 96MG/DL Calculated Osmolality 267MOSM/KG 274MOSM/KG Calcium Level 8.8MG/DL 9.0MG/DL Magnesium Level 2.1MG/DL 2.3MG/DL Total Bilirubin 0.70MG/DL Icterus Index < 2 < 2 Aspartate Amino Transf (AST/SGOT) 22U/L Alanine Aminotransferase (ALT/SGPT) 49U/L Alkaline Phosphatase 123U/L Total Protein 6.8G/DL Albumin 4.0G/DL Globulin 2.8G/DL Albumin/Globulin Ratio 1.4RATIO Thyroid Stimulating Hormone (TSH) 1.82MIU/L Free Thyroxine 1.17NG/DL Chemistry Specimen Hemolysis < 15 < 15 Laboratory Tests 11/08/16 04:42 EKG 11/07/16 QT/QTc 392/397 11/08/16 QT/QTc 397/399 Medications Current Medications Medications (Trade) Dose Ordered Sig/Miriam Start Time Stop Time Status Last Admin Dose Admin Flecainide Acetate (Tambocor) 50 mg Q12HR 11/07/16 09:30 11/07/16 21:05 50 MG Acetaminophen (Tylenol Extra Strength) 1,000 mg Q4-6H PRN 11/07/16 09:30 Aspirin (ASA) 81 mg DAILY 11/08/16 09:00 Celecoxib (CeleBREX) 200 mg DAILY 11/08/16 09:00 11/08/16 08:50 200 MG Estradiol (Estrace) 1 applic BID 11/07/16 10:02 11/07/16 10:14 DC Losartan Potassium (Cozaar) 100 mg DAILY 11/08/16 09:00 11/08/16 08:51 100 MG Metoprolol Tartrate (Lopressor) 50 mg BIDWM 11/07/16 17:30 11/08/16 08:49 50 MG Estradiol (Estrace) 1 applic BID PRN 11/07/16 10:15 Hospital Course 11/07/16 Admitted for AAT -- started on Flecainide 50mg po BID. Initial QT/QTc 392/397 11/08/16 Tolerated Flecainide well; QT/QTc 397/399; HR in 60s; continue Metoprolol same dose; recommended she check her pulse prior to taking metoprolol ; if <50, call DR. 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 Problems: (1) Precordial pain (2) Palpitations (3) Nonrheumatic aortic valve insufficiency (4) Essential (primary) hypertension (5) Atrial septal defect (6) Supraventricular tachycardia (7) HTN (hypertension) Status: Chronic Code Status Full Code Home Meds Active Scripts Flecainide Acetate (Flecainide Acetate) 50 Mg Tablet, 50 MG PO Q12HR for 30 Days , #60 TAB 11 Refills Prov:ELROY APPIAH APRN 11/08/16 Metoprolol Tartrate (Metoprolol Tartrate) 50 Mg Tablet, 50 MG PO BIDWM for 30 Days, #60 TAB Take 1 tablet, by mouth, 2 times a day with meals. Prov:GRADY CARRILLO MD 09/21/16 Reported Medications [magnes] No Conflict Check, 250 MG PO DAILY 11/07/16 Acetaminophen (Acetaminophen) 500 Mg Tablet, 1000 MG PO Q4-6H, #60 TAB 1 Refill 09/21/16 Estradiol (Estrace Vaginal Cream 0.01%) 21 Applic/42 G Cr, 1 APPLIC VAGINALLY BID, G USUAL APPLICATION: 2-4 GRAMS VAGINALLY 09/21/16 Multivitamin/Iron/Folic Acid (A Thru Z Advanced Formula Tab) 1 Each Tablet, 1 TAB PO DAILY 09/21/16 Losartan Potassium (Losartan Potassium) 100 Mg Tablet, 100 MG PO DAILY 09/21/16 Cranberry Extract (Cranberry) 500 Mg Capsule, 1 TAB PO DAILY 07/04/16 Cholecalciferol (Vitamin D3) (Vitamin D3) 1,000 Unit Capsule, 1 CAP PO DAILY 07/04/16 Zoledronic Acid/Mannitol/Water (Reclast 5 Mg/100 Ml Solution) 5 Mg/100 Ml Infus..btl, 5 MG IV YEARLY 09/17/13 Aspirin (Aspirin) 81 Mg Tab.chew, 81 MG PO DAILY, TAB 09/16/13 Celecoxib (Celebrex) 200 Mg Capsule, 200 MG PO DAILY 09/02/08 Calcium Citrate/Vitamin D3 (Calcium Citrate + D Caplet) 1 Tab Tablet, 1 TAB PO TID 09/02/08 Glucosa Simon 2KCL/Chondroitin Simon (Glucosamine & Chondroitin Cap) 1 Cap Capsule, 1 CAP PO DAILY 09/02/08 Discharge Disposition Home to self care. MENDEZ CASAS MD 11/13/16 1625: Hospital Course Home Meds Active Scripts Flecainide Acetate (Flecainide Acetate) 50 Mg Tablet, 50 MG PO Q12HR for 30 Days , #60 TAB 11 Refills Prov:ELROY APPIAH APRN 11/08/16 Metoprolol Tartrate (Metoprolol Tartrate) 50 Mg Tablet, 50 MG PO BIDWM for 30 Days, #60 TAB Take 1 tablet, by mouth, 2 times a day with meals. Prov:GRADY CARRILLO MD 09/21/16 Reported Medications [magnes] No Conflict Check, 250 MG PO DAILY 11/07/16 Acetaminophen (Acetaminophen) 500 Mg Tablet, 1000 MG PO Q4-6H, #60 TAB 1 Refill 09/21/16 Estradiol (Estrace Vaginal Cream 0.01%) 21 Applic/42 G Cr, 1 APPLIC VAGINALLY BID, G USUAL APPLICATION: 2-4 GRAMS VAGINALLY 09/21/16 Multivitamin/Iron/Folic Acid (A Thru Z Advanced Formula Tab) 1 Each Tablet, 1 TAB PO DAILY 09/21/16 Losartan Potassium (Losartan Potassium) 100 Mg Tablet, 100 MG PO DAILY 09/21/16 Cranberry Extract (Cranberry) 500 Mg Capsule, 1 TAB PO DAILY 07/04/16 Cholecalciferol (Vitamin D3) (Vitamin D3) 1,000 Unit Capsule, 1 CAP PO DAILY 07/04/16 Zoledronic Acid/Mannitol/Water (Reclast 5 Mg/100 Ml Solution) 5 Mg/100 Ml Infus..btl, 5 MG IV YEARLY 09/17/13 Aspirin (Aspirin) 81 Mg Tab.chew, 81 MG PO DAILY, TAB 09/16/13 Celecoxib (Celebrex) 200 Mg Capsule, 200 MG PO DAILY 09/02/08 Calcium Citrate/Vitamin D3 (Calcium Citrate + D Caplet) 1 Tab Tablet, 1 TAB PO TID 09/02/08 Glucosa Simon 2KCL/Chondroitin Simon (Glucosamine & Chondroitin Cap) 1 Cap Capsule, 1 CAP PO DAILY 09/02/08 Discharge Disposition After examining the patient I agree with the above assessment. I am involved in the formulation of the patient's plan of care. ELROY APPIAH APRN Nov 08, 2016 09:18 MENDEZ CASAS MD Nov 13, 2016 16:25
== END 2016-11-08 09:49 | disposition home or self-care (01) ==
LOC: MED 08:05
PROVIDERS: ADMIT Internal Medicine Cardiovascular Disease; ATTEND Internal Medicine Cardiovascular Disease
DX: I47.1 Supraventricular tachycardia (principal); I35.1 Nonrheumatic aortic (valve) insufficiency; I10 Essential (primary) hypertension; Q21.1 Atrial septal defect; E78.5 Hyperlipidemia, unspecified; F17.210 Nicotine dependence, cigarettes, uncomplicated; Z79.82 Long term (current) use of aspirin; Z79.1 Long term (current) use of non-steroidal anti-inflammatories (NSAID); Z79.899 Other long term (current) drug therapy; Z79.890 Hormone replacement therapy
CPT/HCPCS: 36415; 80048; 80053; 83735; 84439; 84443; 85007; 85027; 93005; A9270; G0378; G0379; 99218

== ENCOUNTER 2016-12-12 10:32 | Outpatient (CLI) | payer MEDICARE, OTHER ==
[2016-12-12] VITALS (11 sets, daily range): BP systolic 109–153; BP diastolic 56–69; PULSE 53–58; RESP 10–20; TEMP 97.7–97.9; O2SAT 96–100; Ht 166.4 cm; Wt 64.2 kg
[~2016-12-12] VITALS: Ht 166.4 cm; Wt 64.2 kg
[~2016-12-12 10:32] MED LIST changes: +AMLO2.5T PO; -FISH1CAP29 PO; +FLEC50TA2 PO; +MAGN250T33 PO
--- NOTE | 2016-12-12 10:40 | NUR ---
ADMIT PT ADMITTED TO ROOM 122 AT THIS TIME VIA AMBULATORY STATUS. PT ALERT AND ORIENTED X3. NO FAMILY PRESENT AT THIS TIME. PT REPOSITIONED SELF INTO BED. WILL CONTINUE TO MONITOR.
[2016-12-12] MEDS ORDERED: NORMAL SALINE 1,000 ML IV SCH (11:00)
[2016-12-12 11:24] LABS: BASOPHILS # (AUTO) 0.1 T/MM3 (0-0.2); EOSINOPHILS # (AUTO) 0.3 T/MM3 (0-0.5); EOSINOPHILS % (AUTO) 6.6 % (0-4); HCT - HEMATOCRIT 37.8 % (36-46); HGB - HEMOGLOBIN 13.2 GM/DL (12-16); IMMATURE GRANULOCYTE # (AUTO) 0.03 T/MM3 (0.00-0.03); IMMATURE GRANULOCYTE % (AUTO) 0.7 % (0.0-0.5); LYMPHOCYTES # (AUTO) 1.4 T/MM3 (1-4.8); LYMPHOCYTES % (AUTO) 31.6 % (23-45); MEAN CORPUSCULAR HGB 29.5 UUG (26-34); MEAN CORPUSCULAR HGB CONC(MCHC 34.9 GM/DL (31-37); MEAN CORPUSCULAR VOLUME 84.6 UM3 (80-100); MEAN PLATELET VOLUME 9.7 UM3 (9.4-12.4); MONOCYTES # (AUTO) 0.5 T/MM3 (0-0.8); MONOCYTES % (AUTO) 9.9 % (0-9.0); NEUTROPHILS #(AUTO)-ABSOLUTE 2.3 T/MM3 (1.8-7.7); NEUTROPHILS % (AUTO) 49.2 % (33-66); RED BLOOD COUNT 4.47 M/MM3 (4.00-5.20); WBC - WHITE BLOOD COUNT 4.6 T/MM3 (4.5-11.0)
[2016-12-12 11:33] LABS: ANION GAP 11 MEQ/L (5-15); BUN/CREATININE RATIO 20 RATIO (6-26); CALCIUM 9.8 MG/DL (8.4-10.2); CHLORIDE 102 MEQ/L (98-107); CO2 - CARBON DIOXIDE 24 MEQ/L (22-30); CREATININE 0.7 MG/DL (0.7-1.2); GLOMERULAR FILTRATION RATE 83; GLUCOSE 92 MG/DL (65-110); POTASSIUM 5.7 MEQ/L (3.6-5); SODIUM 137 MEQ/L (134-144)
[2016-12-12] MEDS ORDERED: HEPARIN 1,000units in NS 500ml BAG IV ONE (11:39)
[2016-12-12] MEDS ORDERED: LIDOCAINE 1% (10mg/ml) 30ml SDV ONE (11:39)
--- NOTE | 2016-12-12 11:53 | NUR ---
CM CM IN TO VISIT PATIENT, SHE IS A&O. PATIENT PLANS TO DISCHARGE HOME, DENIES DISCHARGE NEEDS. CM CONTACT INFORMATION GIVEN. Addendum: 12/12/16 at 1154 by BIANCA COLBY RN Amended: Links added.
[2016-12-12 12:17] LABS: POTASSIUM 4.5 MEQ/L (3.6-5)
--- NOTE | 2016-12-12 12:46 | NUR ---
TO [facility] PT TRANSPORTED TO THE [facility] AT THIS TIME VIA CART AND BY TEVIN LECHUGA. VITAL SIGNS STABLE ON ROOM AIR. INFORMED CONSENT OBTAINED. PT VOIDED PRIOR TO TRANSFER. WILL CONTINUE TO MONITOR.
[2016-12-12] MEDS ORDERED: FENTANYL 100mcg/2ml INJECTION ONE (12:48)
[2016-12-12] MEDS ORDERED: MIDAZOLAM 2mg/2ml INJECTION ONE (12:48)
[2016-12-12] MEDS ORDERED: IOHEXOL 350mg/ml 200ml BOTTLE ONE (12:49)
[2016-12-12 13:27] LABS: VBG TOTAL CO2 27 MEQ/L
[2016-12-12] MEDS ORDERED: BISACODYL 10 MG SUPPOSITORY RECTALLY PRN (13:30)
[2016-12-12] MEDS ORDERED: BISACODYL 5 MG E.C. TABLET PO PRN (13:30)
[2016-12-12] MEDS ORDERED: MILK OF MAGNESIA 30 ML SUSP PO PRN (13:30)
[2016-12-12] MEDS ORDERED: ACETAMINOPHEN 325 MG TABLET PO PRN (13:30)
[2016-12-12] MEDS ORDERED: LORAZEPAM 1 MG TABLET PO PRN (13:30)
[2016-12-12] MEDS ORDERED: ONDANSETRON 4mg/2ml INJECTION IV PRN (13:30)
[2016-12-12] MEDS ORDERED: MAG-AL + SIM LIQUID 30 ML UDC PO PRN (13:30)
[2016-12-12] MEDS ORDERED: MORPHINE SULFATE 4 MG SYRINGE IV PRN ×2 (13:30)
[2016-12-12] MEDS ORDERED: NITROGLYCERIN 0.4 MG SUBLINGUAL TABLET SL PRN (13:30)
[2016-12-12] MEDS ORDERED: METOCLOPRAMIDE 10mg/2ml INJECTION IV PRN (13:30)
[2016-12-12] MEDS ORDERED: LORAZEPAM 2 MG/ML INJECTION IV PRN (13:30)
[2016-12-12] MEDS ORDERED: HYDROCODONE/APAP 5 mg/325 mg TABLET PO PRN (13:30)
[2016-12-12] MEDS ORDERED: PROMETHAZINE 25 MG INJECTION IV PRN (13:30)
[2016-12-12] MEDS ORDERED: ATROPINE 1 MG/ML VIAL IV PRN (13:30)
--- NOTE | 2016-12-12 13:45 | NUR ---
RETURN PT RETURNED TO ROOM 122 AT THIS TIME VIA CART. PT TRANSFERRED FROM CART TO BED WITH SLIDE BOARD AND ASSIST X3. VITAL SIGN STABLE ON ROOM AIR. NO S/S OF BLEEDING TO RIGHT GROIN SITE. WILL CONTINUE TO MONITOR.
--- NOTE | 2016-12-12 17:00 | NUR ---
DISCHARGE PT DISCHARGED TO HOME AT THIS TIME IN THE COMPANY OF HER SISTER. PT AMBULATED SELF TO THE FRONT ENTRANCE WITH THE SUPERVISION OF STAFF. DISCHARGE INSTRUCTIONS INCLUDING DIET, ACTIVITY, MEDICATIONS, FOLLOW UP APPOINTMENT, [facility] CLOSURE DEVICE, [facility] CATH INSTRUCTIONS AND REPORTABLE S/S GIVEN AND REVIEWED WITH PATIENT. PT VERBALIZED UNDERSTANDING AND HAD NO FURTHER QUESTIONS. IVL DISCONTINUED. ARMBAND REMOVED. PERSONAL BELONGINGS AND HOME MEDICATIONS RETURNED.
--- NOTE | 2016-12-12 21:40 | CVPROF ---
CARDIAC CATHETERIZATION DATE OF PROCEDURE December 12, 2016. The patient is a pleasant 71-year-old lady with aortic insufficiency, chest pressure and tightness. She was referred for further evaluation by cardiac catheterization and possible intervention. Informed consent was obtained after explaining the procedure and the potential risks to the patient who agreed to proceed with the procedure. PROCEDURE 1. Left heart catheterization. 2. Coronary angiography. 3. Left ventriculography. 4. Right heart catheterization. 5. Right femoral angiography to visualize the vessel for Mynx deployment. 6. Successful Mynx deployment for hemostasis. 7. Aortic root angiography. TECHNIQUE She was prepped and draped in the usual sterile techniques. 1% lidocaine was used for local anesthesia. Using modified Seldinger technique, arterial access was obtained into the right femoral artery with placement of a 6-Cypriot arterial sheath. Venous access was obtained into the right femoral vein with placement of a 7-Cypriot venous sheath. Conscious sedation was performed using Versed and fentanyl. LEFT VENTRICULOGRAPHY Left ventriculography in single-plane SUGGS shallow projection showed normal LV systolic function with ejection fraction of about 65% with no mitral regurgitation or gradient across the aortic valve. LVEDP was about 15. AORTIC ROOT ANGIOGRAPHY Aortic root angiography showed moderate aortic insufficiency with no aortic dissection or aneurysm. CORONARY ANGIOGRAPHY Left main, left anterior descending and diagonals, left circumflex and marginals, and right coronary artery were all free of significant lesions. HEMODYNAMIC DATA Pulmonary capillary wedge pressure mean of 10, pulmonary artery pressure was 33/9 with a mean of 20, right ventricular pressure was 33/1 with EDP of 9, and right atrial mean pressure of 4. Aortic saturation was 99% and mixed venous saturation was 72%. Licha cardiac output showed a cardiac output of 3.12 L/min with an index of 1.8 L/min/m2. Right femoral angiography showed patent common femoral, proximal SFA and profunda and therefore Mynx was used for hemostasis. IMPRESSION 1. No significant coronary artery disease. 2. Normal LV systolic function with ejection fraction of 65%. 3. Moderate aortic insufficiency. 4. Near-normal right heart pressures. 5. Successful Mynx deployment for hemostasis. PLAN Medical management for the time being. If the patient has symptoms related to aortic insufficiency one might consider transesophageal echocardiogram for further evaluation. LIONEL
== END 2016-12-12 17:00 | disposition home or self-care (01) ==
LOC: CATH 10:32 → SRG 10:35 → CATH 17:00
PROVIDERS: ATTEND Internal Medicine Cardiovascular Disease
DX: I35.1 Nonrheumatic aortic (valve) insufficiency (principal); R07.2 Precordial pain; Q21.1 Atrial septal defect; I47.1 Supraventricular tachycardia; I10 Essential (primary) hypertension; F17.210 Nicotine dependence, cigarettes, uncomplicated; Z79.82 Long term (current) use of aspirin; Z79.1 Long term (current) use of non-steroidal anti-inflammatories (NSAID); Z79.83 Long term (current) use of bisphosphonates; Z79.899 Other long term (current) drug therapy
CPT/HCPCS: 36415; 80048; 82803; 84132; 85025; 93005; 93460; C1760; C1887; C1893; J1644; J2250; J3010; J7030; Q9967